=== PATIENT | male | born 1945 | race Caucasian/White ===

== ENCOUNTER → 2018-01-19 | Outpatient (CLI) | payer MEDICARE, OTHER | LOC: M.LAB 01:48 | DX: Z01.812 Encounter for preprocedural laboratory examination (principal); Z79.899 Other long term (current) drug therapy ==

== ENCOUNTER → 2019-01-18 | Outpatient (CLI) | payer MEDICARE, OTHER | LOC: M.RAD 10:26 | DX: R13.19 Other dysphagia (principal); I10 Essential (primary) hypertension; D75.1 Secondary polycythemia ==

== ENCOUNTER → 2019-02-07 | Outpatient (CLI) | payer MEDICARE, OTHER | LOC: M.LAB 01:06 | DX: E87.6 Hypokalemia (principal) ==

== ENCOUNTER → 2019-04-18 | Outpatient (CLI) | payer MEDICARE, OTHER | LOC: M.MRI 08:07 | DX: S43.401A Unspecified sprain of right shoulder joint, initial encounter (principal); M75.101 Unspecified rotator cuff tear or rupture of right shoulder, not specified as traumatic; M19.011 Primary osteoarthritis, right shoulder; X58.XXXA Exposure to other specified factors, initial encounter; Y93.89 Activity, other specified; Y92.89 Other specified places as the place of occurrence of the external cause; Y99.8 Other external cause status ==

== ENCOUNTER → 2019-05-09 | Outpatient (CLI) | payer MEDICARE, OTHER | LOC: M.LAB 05-06 17:23 | DX: E87.6 Hypokalemia (principal) ==

== ENCOUNTER → 2019-07-14 | Outpatient (CLI) | payer MEDICARE, OTHER ==
[~2019-07-14] MED LIST: COZAAR 25 MG TA25 M1 PO; FOLIC ACID1 MG PO; HYDROCHLOROTH12.5 M1 PO; IBUPROFEN 200200 M1 PO; OMEPRAZOLE40 MG PO; ROXICODONE5 M2 PO; STELARA45 MG/0.1 SUBQ; VITAMIN B-12500 MCG PO
== END ==
LOC: M.CT 13:08
DX: M12.01 Chronic postrheumatic arthropathy [Jaccoud], shoulder (principal)

== ENCOUNTER 2019-08-04 06:25 | Observation (INO) | payer MEDICARE, OTHER ==
[2019-07-21 09:20] LABS: APTT 30.1 Seconds (25.0-31.3); PROTIME 10.4 Seconds (9.20-11.50)
[2019-07-21 09:33] LABS: ABSOLUTE LYMPHOCYTES 1.1 thou/uL (0.8-5.3); ABSOLUTE MONOCYTES 0.5 thou/uL (0.0-1.2); EOSINOPHILS 1.2 %; HEMATOCRIT 50.7 % (42.0-52.0); LYMPHOCYTES 29.5 %; MCH 33.8 pg (26.0-34.0); MCHC 35.4 g/dL (28.0-37.0); MCV 95.4 fL (80.0-100.0); MONOCYTES 13.5 %; MPV 8.3 fl. (7.2-11.1); NUCLEATED RBCS 0 /100WBC; PLATELET COUNT* 206 thou/uL (150-400); POLYS 54.8 %; RBC 5.32 mil/uL (4.50-6.00); RDW-CV 13.9 % (10.5-14.5); WBC 3.6 thou/uL (4.0-11.0)
[2019-07-21 09:35] LABS: ALBUMIN 3.6 g/dL (3.4-5.0); CALCIUM 9.3 mg/dL (8.5-10.1); POTASSIUM 3.1 mmol/L (3.5-5.1); TOTAL BILIRUBIN 0.7 mg/dL (<0.1-1.0); TOTAL PROTEIN 7.2 g/dL (6.4-8.2)
[2019-07-21 10:32] LABS: ESR (SEDRATE) 0 mm/hr (0-20)
--- NOTE | 2019-07-21 17:21 | EKG ---
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 07/21/19 1720 0911 0 Luis Antonio Taylor MD, FACC /EPI
[~2019-08-04] VITALS: Ht 180.3 cm; Wt 95.3 kg
[~2019-08-04 06:25] MED LIST changes: -ROXICODONE5 M2 PO
[2019-08-04 13:00] VITALS: BP 134/73
[2019-08-04 19:58] VITALS: BP 131/85
[2019-08-05] VITALS: BP 117/76
[2019-08-05 03:32] LABS: HEMATOCRIT 48.5 % (42.0-52.0); HEMOGLOBIN 16.8 gm/dL (14.0-18.0); MCH 33.5 pg (26.0-34.0); MCHC 34.5 g/dL (28.0-37.0); MPV 8.3 fl. (7.2-11.1); RBC 5.01 mil/uL (4.50-6.00); RDW-CV 13.3 % (10.5-14.5); WBC 9.7 thou/uL (4.0-11.0)
[2019-08-05 03:48] LABS: ALBUMIN 3.2 g/dL (3.4-5.0); CALCIUM 9.3 mg/dL (8.5-10.1); POTASSIUM 3.9 mmol/L (3.5-5.1); TOTAL BILIRUBIN 1.1 mg/dL (<0.1-1.0); TOTAL PROTEIN 6.7 g/dL (6.4-8.2)
[2019-08-05 04:00] VITALS: BP 120/66
[2019-08-05 09:38] VITALS: BP 143/78
[2019-08-05 10:41] VITALS: BP 143/78
[2019-08-05] MEDS ORDERED: ROXICODONE5 M2 PO (10:53)
--- NOTE | 2019-08-26 12:21 | OP ---
[address] [address] OPERATIVE REPORT Name: ALDAIR MENDEZ Room: [address] Alejandro Gloria#: [id number] Admission: 08/04/19 Attend Phys: Fredo Harris Discharge: 08/05/19 Date of : 41 Report #: [id number] THIS REPORT FOR: //name// CC: Darrel Valentine DICTATED BY: Benton Bonilla DO DATE OF SERVICE: 08/04/2019 PREOPERATIVE DIAGNOSIS: Right shoulder rotator cuff tear arthropathy. POSTOPERATIVE DIAGNOSIS: Right shoulder rotator cuff tear arthropathy. PROCEDURE PERFORMED: Right reverse total shoulder arthroplasty. SURGEON: Liam Escoto DO QUALITY SYSTEMS TECHNICIAN: Benton Bonilla DO ANESTHESIA: General and interscalene block. ESTIMATED BLOOD LOSS: 200 mL. SPECIMENS REMOVED: None. DRAINS: None. IMPLANTS: None. ANTIBIOTICS: 2 grams Ancef IV piggyback preop. IMPLANTS: Tornier reverse total shoulder system with a 29 mm baseplate with 30 mm screw, a 36 mm standard glenosphere, a 5B long stem with a +6 mm baseplate and then a 1.5 mm offset, 6 mm poly insert. INDICATIONS FOR PROCEDURE: The patient is a very pleasant man who has been following this for quite some time with right shoulder rotator cuff arthropathy. He continued to have worsening of his symptoms with conservative treatment was no longer effective in preventing his symptoms. He is becoming more sedentary and difficulty with ADLs and is requesting surgical intervention. Risks, benefits, complications, alternatives were discussed with him. He voiced understanding and wished to proceed with surgery. DESCRIPTION OF PROCEDURE: The patient was seen in the holding area. [address] [address] OPERATIVE REPORT Name: ANDREAALDAIR HANG Room: [address] Alejandro Gloria#: [id number] Admission: 08/04/19 Attend Phys: Fredo Harris Discharge: 08/05/19 Date of : 41 Report #: [id number] operative site was marked. Verbal consent was obtained. He was transferred to the operative suite and placed supine on the table, given benefit of general anesthesia by anesthesia team. He was then properly secured to the T-max table and placed in the beach chair position. Right upper extremity was then appropriately prepped and draped in normal sterile fashion. Timeout was performed and all those in attendance agreement with correct site and procedure to be performed. A 10 blade scalpel was used to incise the skin and a standard deltopectoral approach. Blunt dissection was taken down after electrocautery was used to maintain hemostasis. We then localized the cephalic vein and this was freed up and taken laterally with the deltoid. Brown retractor was placed and a LINQ retractor was placed medially. We undermined the conjoined tendon for a LINQ retractor and then slowly dissected down to the biceps screw. Electrocautery was used to gain access to the biceps groove and then Elaine scissors were used to continue this up to the glenoid and the insertion of the long biceps tendon. Tenotomy of the long head biceps tendon was then performed and electrocautery was used to peel the subscap tendon away from the humerus. Once we had adequate exposure and a dislocation of the humerus our canal finder was used following the proximal humerus cutting guide with 30 degrees of external rotation. We then used an oscillating saw to perform resection of the proximal humerus and excess bone osteophytes were removed with a rongeur and electrocautery. We then appropriately sized our stems up to a 5B stem. This was left in place and then the humerus was then posteriorly with posterior glenoid retractor was placed followed by our anterior glenoid retractor. We then excised the labrum and remaining part of the long head biceps tendon from the glenoid in order to fully expose this area. Once this was performed, a cruciate was marked on the glenoid and appropriate starting pin was placed utilizing the preoperative CT scan plane. The pin was then placed to appropriate depth and measured as a 30 mm depth. This was further drilled and reamed to the appropriate size. The final baseplate was passed. Excess osteophytes were removed from the inferior aspect of the glenoid and the baseplate was screwed in place and found to have excellent fixation. We then placed two screws through the baseplate to the appropriate depth and then these were secured in a locking fashion. We then malleted into place and secured our 36-mm standard glenosphere with excellent coverage of the glenoid. A thorough irrigation was then used for the shoulder joint. We once again turned our attention to the proximal humerus. The appropriate baseplate +6 mm sized with the offset for good coverage of the proximal humerus was placed and then our trial poly was inserted and the shoulder was reduced and found to have good range of motion with no instability and excellent tension on the conjoint tendon. We then dislocated the shoulder, removed our trial implants were a proximal humerus our final implants were assembled on the back table with the appropriate markings placed based on our trial fixation. Once this was performed, the final implant was malleted into place, was found to have good fixation and the final reduction was performed. Once this was done, the trocar was taken through range of motion, [place] [address] OPERATIVE REPORT Name: ALDAIR MENDEZ Room: [address] Faizan#: [id number] Admission: 08/04/19 Attend Phys: Fredo Harris Discharge: 08/05/19 Date of : 41 Report #: [id number] stable in all planes and with excellent tension on the conjoined tendon. Shoulder was once again thoroughly irrigated with sterile saline. Hemostasis was maintained throughout with electrocautery. The deltopectoral fascia was then reapproximated loosely utilizing a 0 Vicryl in a [id number] fashion. Skin was then closed using 2-0 Vicryl in an inverted subcuticular fashion followed by running 3-0 Stratafix and Exofin skin glue. Sterile Mepilex dressing was placed. The patient was awoken from anesthesia and transferred to PACU in stable condition. All instrument counts were correct at the end of the case x 2. I attest Dr. Escoto was present through all critical decision making aspects of the case. <ELECTRONICALLY SIGNED> By: Liam Escoto DO 08/26/19 1221 1643 [email or web address] Escoto DO /nt
== END 2019-08-05 12:05 | disposition home or self-care (01) ==
LOC: M.SUR → M.ORTHSURG 06:25 → M.TBA 06:25 → M.SUR 06:39 → M.PRE 09:20 → EDSTATUS 12:20 → M.PRE 12:22 → M.ORTHSURG 13:02 → M.SUR 13:09 → M.ORTHSURG 08-05 12:05
PROVIDERS: Internal Medicine; Orthopaedic Surgery; ADMIT Internal Medicine
DX: M75.101 Unspecified rotator cuff tear or rupture of right shoulder, not specified as traumatic (principal); M19.011 Primary osteoarthritis, right shoulder; I10 Essential (primary) hypertension; L40.9 Psoriasis, unspecified; K21.9 Gastro-esophageal reflux disease without esophagitis; E87.6 Hypokalemia; Z79.899 Other long term (current) drug therapy

== ENCOUNTER 2019-12-26 08:08 | Inpatient (IN) | payer MEDICARE, OTHER ==
[~2019-12-26] VITALS: Ht 180.3 cm; Wt 93.4 kg
--- NOTE | ~2019-12-26 | PROC ---
[facility] [address] [place] [address] PROCEDURE REPORT Name: ALDAIR MENDEZ Room: [address] IN M.R.#: [id number] Admission: 12/26/19 Attend Phys: Fredo Harris Discharge: 01/03/20 Date of : 41 Report #: [id number] THIS REPORT FOR: //name// cc: Darrel Vasquez MD, David L. MD ~ THIS REPORT FOR: //name// For GI report, please see the Provation report in Perceptive 7 content. By: 0645Medical Records Staff JOSE /DAVID
[~2019-12-26 08:08] MED LIST changes: +ROXICODONE5 M2 PO
[2019-12-26 08:14] VITALS: BP 105/81
[2019-12-26 08:50] LABS: ABSOLUTE LYMPHOCYTES 0.5 thou/uL (0.8-5.3); ABSOLUTE MONOCYTES 0.9 thou/uL (0.0-1.2); BASOPHILS 0.3 %; EOSINOPHILS 0.1 %; HEMATOCRIT 58.6 % (42.0-52.0); HEMOGLOBIN 20.9 gm/dL (14.0-18.0); LYMPHOCYTES 5.4 %; MCH 33.1 pg (26.0-34.0); MCHC 35.6 g/dL (28.0-37.0); MCV 92.9 fL (80.0-100.0); MONOCYTES 10.7 %; MPV 8.6 fl. (7.2-11.1); NUCLEATED RBCS 0 /100WBC; PLATELET COUNT* 258 thou/uL (150-400); POLYS 83.5 %; RBC 6.31 mil/uL (4.50-6.00); RDW-CV 14.3 % (10.5-14.5); WBC 8.4 thou/uL (4.0-11.0)
[2019-12-26 09:39] LABS: ALBUMIN 4.4 g/dL (3.4-5.0); CALCIUM 9.7 mg/dL (8.5-10.1); CREATININE 2.5 mg/dL (0.6-1.3); POTASSIUM 3.1 mmol/L (3.5-5.1); TOTAL BILIRUBIN 2.4 mg/dL (<0.1-1.0); TOTAL PROTEIN 8.7 g/dL (6.4-8.2)
[2019-12-26 13:17] VITALS: BP 127/75
[2019-12-26 13:42] VITALS: BP 137/75
[2019-12-26 16:00] VITALS: BP 128/64
--- NOTE | 2019-12-26 16:18 | NUR ---
PATIENT ADMITTED TO ROOM 314. ALERT AND ORIENTED X 4. NO COMPLAINTS OF PAIN. PATIENT HAVING LOSE STOOLS, PER DR. WAGNER NO ORDERS FOR CDIFF SAMPLE TO BE SENT. REG DIET ORDERED. IVF INFUSING. UP AD ESTELLE. AT BEDSIDE. REFUSED SCD'S. ORIENTED TO CALL LIGHT. CALL LIGHT WITHIN REACH, WILL CONTINUE TO MONITOR.
--- NOTE | 2019-12-26 16:30 | EKG ---
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: MS : 1945 Requested By: Christian Issa Order Number: [id number] MD: Luis Antonio Taylor Measurements Intervals [place] Rate: 95 P: 32 WV: 170 QRS: -61 QRSD: 102 T: 79 QT: 378 QTc: 475 Interpretive Statements Sinus rhythm Left anterior fascicular block Abnormal R-wave progression, late transition Borderline prolonged QT interval Compared to ECG 07/21/2019 09:11:51 Left anterior fascicular block now present Left-axis deviation no longer present Electronically Signed On 12-26-2019 16:28:58 CDT by Luis Antonio Taylor [email or web address] <ELECTRONICALLY SIGNED> By: Luis Antonio Taylor MD, [facility] 12/26/19 1628 0847 Luis Antonio Taylor MD, [facility] /EPI
[2019-12-26 21:00] VITALS: BP 125/75
[2019-12-27 05:14] LABS: ABSOLUTE LYMPHOCYTES 0.4 thou/uL (0.8-5.3); ABSOLUTE MONOCYTES 0.9 thou/uL (0.0-1.2); ABSOLUTE NEUTROPHILS 3.7 thou/uL (1.6-8.1); BASOPHILS 0.1 %; EOSINOPHILS 0.1 %; HEMATOCRIT 51.1 % (42.0-52.0); LYMPHOCYTES 8.6 %; MCH 33.2 pg (26.0-34.0); MCHC 35.2 g/dL (28.0-37.0); MCV 94.1 fL (80.0-100.0); MONOCYTES 18.3 %; MPV 8.7 fl. (7.2-11.1); NUCLEATED RBCS 0 /100WBC; POLYS 72.9 %; RBC 5.43 mil/uL (4.50-6.00); RDW-CV 14.3 % (10.5-14.5); WBC 5.1 thou/uL (4.0-11.0)
[2019-12-27 05:24] LABS: CALCIUM 8.1 mg/dL (8.5-10.1); MAGNESIUM 1.4 mg/dL (1.8-2.4); POTASSIUM 3.2 mmol/L (3.5-5.1)
[2019-12-27 05:25] LABS: PLATELET COUNT* 177 thou/uL (150-400)
[2019-12-27 05:26] LABS: CREATININE 1.3 mg/dL (0.6-1.3)
[2019-12-27 07:55] VITALS: BP 120/68
[2019-12-27 15:00] LABS: MAGNESIUM 2.3 mg/dL (1.8-2.4); POTASSIUM 3.5 mmol/L (3.5-5.1)
--- NOTE | 2019-12-27 16:58 | NUR ---
Pt lives at home with . Pt has a cane covered through Medicare last year. No known history of HH or SNF. SW to continue to follow to assist with safe dc planning.
--- NOTE | 2019-12-27 17:29 | NUR ---
Remains stable. VSS. IVFs infusing without difficulty. Up adlib. Continues to c/o frequent diarrhea. Denies pain. NPO after MN for KUB in am. GI cx. No s/sx of acute distress. Nsg will continue to assess.
[2019-12-27 17:31] VITALS: BP 136/76
--- NOTE | 2019-12-27 19:20 | NUR ---
DR. WAGNER NOTIFIED OF CONT DIARRHEA AND LOSE OF APPETITE. ORDERS FOR TOMORROWS KUB TO BE DONE TODAY AND GI CONS. KUB RESULTS NEGATIVE AND DR. WAGNER NOTIFIED. ORDERS FOR ABD US, DR. WAGNER WAS NOTIFIED THAT US TO BE DONE IN AM FOR 8 HR NPO STATUS.
[2019-12-27 20:15] VITALS: BP 143/77
[2019-12-28 00:01] LABS: URINE BILIRUBIN NEGATIVE (Negative); URINE BLOOD TRACE (Negative); URINE CLARITY CLEAR; URINE COLOR YELLOW; URINE GLUCOSE-RANDOM NEGATIVE (Negative); URINE KETONES NEGATIVE (Negative); URINE LEUKOCYTES-REFLEX NEGATIVE (Negative); URINE NITRITE-REFLEX NEGATIVE (Negative); URINE PROTEIN TRACE (Negative); URINE SPECIFIC GRAVITY 1.025 (1.005-1.030); URINE UROBILINOGEN 0.2 E.U./dl (0.2-1.0)
[2019-12-28 05:28] LABS: HEMATOCRIT 48.8 % (42.0-52.0); MCH 32.8 pg (26.0-34.0); MCHC 34.8 g/dL (28.0-37.0); MCV 94.3 fL (80.0-100.0); MPV 8.1 fl. (7.2-11.1); NUCLEATED RBCS 0 /100WBC; PLATELET COUNT* 182 thou/uL (150-400); RBC 5.17 mil/uL (4.50-6.00); RDW-CV 14.1 % (10.5-14.5)
[2019-12-28 05:39] LABS: ALBUMIN 3.3 g/dL (3.4-5.0); CALCIUM 8.1 mg/dL (8.5-10.1); CREATININE 1.1 mg/dL (0.6-1.3); POTASSIUM 3.3 mmol/L (3.5-5.1); TOTAL BILIRUBIN 0.9 mg/dL (<0.1-1.0); TOTAL PROTEIN 6.8 g/dL (6.4-8.2)
--- NOTE | 2019-12-28 05:45 | NUR ---
PT HAS DENIED PAIN THIS SHIFT, UP AD ESTELLE TO BATHROOM FOR 6 LOOSE DK GREEN STOOLS THIS SHIFT. HAS BEEN NPO SINCE MIDNIGHT FOR ABD US TODAY. CDIFF RESULT NEGATIVE, ISOLATION REMOVED. RAC IVF INFUSING PER PUMP, ABX GIVEN ORDERED. GI TO SEE. ABLE TO USE CALL LITE AND MAKE NEEDS KNOWN.
[2019-12-28 06:55] LABS: ABSOLUTE LYMPHOCYTES 0.6 thou/uL (0.8-5.3); ABSOLUTE MONOCYTES 0.6 thou/uL (0.0-1.2); ABSOLUTE NEUTROPHILS 2.8 thou/uL (1.6-8.1); PLATELET ESTIMATE ADEQUATE
[2019-12-28 07:40] VITALS: BP 127/70
[2019-12-28 15:30] VITALS: BP 125/69
--- NOTE | 2019-12-28 17:28 | CON ---
[address] [address] CONSULTATION Name: ALDAIR MENDEZ Room: [address] IN M.R.#: [id number] Admission: 12/26/19 Attend Phys: Fredo Harris Discharge: Date of : 41 Report #: [id number] THIS REPORT FOR: //name// cc: Darrel Vasquez MD, David L. MD ~ THIS REPORT FOR: //name// CC: Darrel Valentine DICTATED BY: Trish Petersen [facility] DATE OF SERVICE: 12/28/2019 PRIMARY CARE PHYSICIAN: Darrel Vasquez MD Please note at the time of this dictation, the patient was seen and physically examined by myself. REASON FOR CONSULTATION: Nausea, vomiting, diarrhea, and dehydration. HISTORY OF PRESENT ILLNESS: This is a 74-year-old male who presented to the Emergency Room. On Thursday, he started having some diarrhea that was very mild. He did not notice any bright red blood or black stools at that time. He then progressed into having nausea and vomiting that was somewhat projectile. Again, he denied any bright red blood or any coffee ground emesis that was noted with that as well. He continued to be unable to keep anything down and his symptoms continued to worsen, prompting him to be brought into the Emergency Room on Thursday morning because he was just totally dehydrated. He said his muscles were just cramping because of that. The patient was last seen by us in 04/2019. He underwent an EGD and colonoscopy at that time that showed a small hiatal hernia, otherwise negative. Colon showed left-sided diverticulum. He had a polyp that was tubular adenoma and external hemorrhoids that were noted at that time. The patient states that his bowels prior to Thursday, he would move anywhere from once to 3 times a day, which is soft and formed with no evidence of any bright red blood or black stools that were noted until they begin to loosen up and then later on Thursday afternoon. ALLERGIES: No known drug allergies. MEDICATIONS FROM HOME: Include Roxicodone, Advil, omeprazole, Stelara, vitamin B12, folic acid, hydrochlorothiazide, and losartan. PAST MEDICAL HISTORY: GERD, hypertension[place] [address] CONSULTATION Name: ALDAIR MENDEZ Room: [address]#: [id number] Admission: 12/26/19 Attend Phys: Fredo Harris Discharge: Date of : 41 Report #: [id number] PAST SURGICAL HISTORY: Cataracts, left eye surgery, tonsillectomy, appendectomy, and left knee arthroscopic surgery. REVIEW OF SYSTEMS: A 12-point review of systems is essentially negative except what is mentioned in the HPI. FAMILY HISTORY: Negative. SOCIAL HISTORY: Negative. PHYSICAL EXAMINATION: VITAL SIGNS: Temperature 36.6, pulse 73, respirations 18, and blood pressure 127/78. HEART: Regular rate and rhythm. LUNGS: Clear. ABDOMEN: Soft. Positive bowel sounds in all 4 quadrants with no masses or tenderness noted. LABORATORY DATA: Hemoglobin is 17, white count is 4, and platelets 182. Potassium is 3.3, GFR is 65, total bilirubin 0.9, alkaline phosphatase 61, ALT 39, and AST is 46. CT showed questionable mild ileus with some diverticular disease and cholelithiasis. Abdominal x-ray that was done on 12/27/2019 is essentially negative. An ultrasound done this morning showed fatty liver with layering gallstones. His C. diff was negative as well. IMPRESSION: 1. Diarrhea. 2. Nausea and vomiting which is improving. 3. Nonsteroidal anti-inflammatory drug use, can be up to 5 a day. 4. Fatty liver disease. 5. History of rectal cancer. PLAN: 1. Stool for GI pathogens. 2. Continue his IV fluids. 3. Continue his Levaquin and Flagyl. 4. Further recommendations to be made once the above has been noted. Thank you for allowing us to participate in this patient's care. Please do not hesitate to call with any questions in regard to this consult. <ELECTRONICALLY SIGNED> By: Tere Rivas MD 12/28/19 1728 1103 [id number] Rivas MD /nt
--- NOTE | 2019-12-28 17:31 | NUR ---
PATIENT HAD A FAIR DAY. STATES STOOLS ARE SLOWING DOWN. LIANA FROM GI SAW PATIENT THIS MORNING AND ORDERS FOR STOOL SAMPLE RECEIVED AND SENT. FAIR APPETITE. IVF AND SCHED ABX REMAIN INFUSING. POTASSIUM BEING REPLACED.
[2019-12-28 21:00] VITALS: BP 122/66
[2019-12-29 04:09] LABS: ABSOLUTE LYMPHOCYTES 0.5 thou/uL (0.8-5.3); ABSOLUTE MONOCYTES 0.8 thou/uL (0.0-1.2); ABSOLUTE NEUTROPHILS 1.8 thou/uL (1.6-8.1); BASOPHILS 0.5 %; EOSINOPHILS 0.2 %; HEMATOCRIT 46.4 % (42.0-52.0); HEMOGLOBIN 16.3 gm/dL (14.0-18.0); LYMPHOCYTES 17.1 %; MCH 33.2 pg (26.0-34.0); MCHC 35.2 g/dL (28.0-37.0); MCV 94.4 fL (80.0-100.0); MONOCYTES 23.7 %; MPV 8.3 fl. (7.2-11.1); NUCLEATED RBCS 0 /100WBC; PLATELET COUNT* 170 thou/uL (150-400); POLYS 58.5 %; RBC 4.91 mil/uL (4.50-6.00); RDW-CV 14.1 % (10.5-14.5); WBC 3.2 thou/uL (4.0-11.0)
[2019-12-29 04:48] LABS: ALBUMIN 3.1 g/dL (3.4-5.0); POTASSIUM 3.3 mmol/L (3.5-5.1)
--- NOTE | 2019-12-29 05:55 | NUR ---
PATIENT SLEPT MOST OF THE NIGHT. IV FLUIDS CONTINUE TO INFUSE ORDERED. PATIENT HAD NO COMPLAINTS OF PAIN. WILL CONTINUE TO MONITOR.
[2019-12-29 08:00] VITALS: BP 118/70
[2019-12-29 15:43] VITALS: BP 126/55
--- NOTE | 2019-12-29 19:26 | NUR ---
PATIENT AWAKE IN BED. PATIENT AMBULATED IN HALLWAY THIS AFTERNOON. PATIENT EXPERIENCED GREEN WATERY EMESIS AFTER DINNER. DR. VALVERDE NOTIFIED. NEW ORDERS RECEIVED. ALL SAFETY MEASURES MAINTAINED. PATIENT DENIES FURTHER NEEDS AT THIS TIME.
[2019-12-29 20:30] VITALS: BP 134/69
--- NOTE | 2019-12-30 05:43 | NUR ---
PATIENT SLEPT MOST OF THE NIGHT. IV FLUIDS AND ANTIBIOTICS WERE GIVEN ORDERED. PATIENT STATES FREQUENCY OF STOOLS HAVE SLOWED DOWN SOME. WILL CONTINUE TO MONITOR.
[2019-12-30 08:00] VITALS: BP 128/75
[2019-12-30 16:00] VITALS: BP 126/61
[2019-12-30 19:50] VITALS: BP 121/62
--- NOTE | 2019-12-30 20:04 | NUR ---
PATIENT AWAKE IN BED. PATIENT AMBULATED IN ROOM AND HALLWAY THIS SHIFT. ALL SAFETY MEASURES MAINTAINED. PATIENT DENIES FURTHER NEEDS AT THIS TIME.
--- NOTE | 2019-12-31 05:19 | NUR ---
PT ALERT AND ORIENTED. VSS ON RA. ASSESSMENT DOCUMENTED. MEDS GIVEN PER EMAR. PT DENIED PAIN THIS SHIFT. [facility] PT AMBULATED [address]. UP AD ESTELLE. PT REPORTS HAVING A BM THAT WS NOT DIARRHEA. WILL CONTINUE TO MONITOR.
[2019-12-31 05:34] LABS: HEMATOCRIT 43.9 % (42.0-52.0); HEMOGLOBIN 15.5 gm/dL (14.0-18.0); MCH 32.8 pg (26.0-34.0); MCHC 35.2 g/dL (28.0-37.0); MCV 93.1 fL (80.0-100.0); RBC 4.71 mil/uL (4.50-6.00); RDW-CV 13.7 % (10.5-14.5); WBC 3.1 thou/uL (4.0-11.0)
[2019-12-31 05:46] LABS: ALBUMIN 2.6 g/dL (3.4-5.0); CALCIUM 7.6 mg/dL (8.5-10.1); CREATININE 1.1 mg/dL (0.6-1.3); MAGNESIUM 1.4 mg/dL (1.8-2.4); POTASSIUM 3.5 mmol/L (3.5-5.1); TOTAL BILIRUBIN 0.6 mg/dL (<0.1-1.0); TOTAL PROTEIN 5.5 g/dL (6.4-8.2)
[2019-12-31 08:00] VITALS: BP 113/71
[2019-12-31 16:02] VITALS: BP 112/56
--- NOTE | 2019-12-31 16:33 | NUR ---
PATIENT NOTED OT HAVE RASH ON BACK THIS AM, DR. PEDRO NOTIFIED AND ORDERS FOR HYDROCORTISONE CREAM. PLACED THIS AFTERNOON AND PHOTO TAKE OF RASH PER PROTOCOL. IV RESTARTED TO RIGH AC, IV THIS AM NOTED TO HAVE PHLEBITIS. IVF AND SCHED ABX REMAIN INFUSING. MG 1.4, REPLACED IV PER PROTOCOL. UP AD ESTELLE. GI SAW PATIENT THIS AFTERNOON, PROBABLE COLONOSCOPY ON THURSDAY.
[2019-12-31 19:50] VITALS: BP 166/67
--- NOTE | 2020-01-01 06:46 | NUR ---
PT ALERT AND ORIENTED. VSS ON RA. PT SLEPT WELL THIS SHIFT. MEDS GIVEN PER EMAR. PT TO START ON CLEAR LIQUID DIET TODAY. PT AWARE. PT UP AD ESTELLE. NO BM NOTED. CALL LIGHT WITHIN REACH. HOURLY ROUNDINGS MADE. WILL CONTINUE TO MONITOR.
[2020-01-01 07:50] VITALS: BP 137/76
--- NOTE | 2020-01-01 14:09 | NUR ---
PATIENT ON CLEAR LIQUID DIET. UP AND SHOWERED THIS AM. HYDROCORTISONE TO RASH ON BACK AFTER SHOWER. IVF AND SCHED ABX INFUSING ORDERED. MG BEING REPLACED PO FOR LEVEL OF 1.7 PER PROTOCOL. PATIENT STARTED ON BOWEL PREP THIS AFTERNOON FOR COLONOSCOPY TOMORROW BY DR. LANDIS. PATIENT TO BE NPO AFTER MIDNIGHT.
--- NOTE | 2020-01-01 15:30 | NUR ---
ASSUMED CARE OF PATIENT AT THIS TIME. PATIENT ON BOWEL PREP. BEDSIDE COMMODE PROVIDED. PATIENT DENIES ANY FURTHER NEEDS. CALL LIGHT WITHIN REACH.
[2020-01-01 18:15] VITALS: BP 164/68
[2020-01-01 19:40] VITALS: BP 139/78
[2020-01-02 04:37] LABS: ABSOLUTE LYMPHOCYTES 1.2 thou/uL (0.8-5.3); ABSOLUTE MONOCYTES 0.6 thou/uL (0.0-1.2); ABSOLUTE NEUTROPHILS 1.9 thou/uL (1.6-8.1); BASOPHILS 1.1 %; EOSINOPHILS 1.3 %; HEMATOCRIT 44.4 % (42.0-52.0); LYMPHOCYTES 30.7 %; MCH 32.8 pg (26.0-34.0); MONOCYTES 16.3 %; MPV 8.2 fl. (7.2-11.1); NUCLEATED RBCS 0 /100WBC; PLATELET COUNT* 167 thou/uL (150-400); POLYS 50.6 %; RBC 4.87 mil/uL (4.50-6.00); RDW-CV 13.7 % (10.5-14.5); WBC 3.8 thou/uL (4.0-11.0)
[2020-01-02 04:47] LABS: APTT 30.4 Seconds (25.0-31.3); INR 1.2; PROTIME 12.1 Seconds (9.20-11.50)
[2020-01-02 05:03] LABS: ALBUMIN 2.8 g/dL (3.4-5.0); CALCIUM 7.5 mg/dL (8.5-10.1); CREATININE 0.8 mg/dL (0.6-1.3); MAGNESIUM 2.7 mg/dL (1.8-2.4); TOTAL PROTEIN 5.9 g/dL (6.4-8.2)
--- NOTE | 2020-01-02 05:10 | NUR ---
PT ALERT AND ORIENTED. VSS ON RA. MEDS GIVEN PER EMAR. BOWEL PREP. NPO AFTER MN. COLONOSCOPY TODAY. CONSENTS DONE. CALL LIGHT WITHIN REACH. HOURLY ROUNDINGS MADE. WILL CONTINUE TO MONITOR.
[2020-01-02 05:24] LABS: POTASSIUM 2.6 mmol/L (3.5-5.1)
[2020-01-02 06:31] VITALS: BP 139/78
[2020-01-02 07:30] VITALS: BP 124/68
--- NOTE | 2020-01-02 14:10 | NUR ---
1345 REMAINS A&O. RESPIRATIONS EVEN AND UNLABORED ON ROOM AIR. DENIES PAIN. IVFS AND K+ INFUSING IN LAC WITHOUT DIFFICULTIES. VSS. HYDROCORTISONE TO RASH AREAS PER MD ORDER. TOLERATING REGULAR DIET. CALL TURNER WITHIN REACH. NSG WILL CONTINUE TO ASSESS.
--- NOTE | 2020-01-02 15:48 | NUR ---
CM SPOKE TO THE PATIENT AND HIS SPOUSE TO DISCUSS DISCHARGE PLANNING NEEDS, AND PLAN TO D/C TOMORROW PER DR PEDRO. PATIENT AND SPOUSE INFORM THAT THEY DO NOT ANTIIPATE ANY DISCHARGE PLANNING NEEDS. CM WILL REMAIN AVAILABLE TO ASSIST AND FOLLOW NEEDED.
[2020-01-02 16:00] VITALS: BP 139/75
[2020-01-02 20:30] VITALS: BP 138/69
--- NOTE | 2020-01-03 06:20 | NUR ---
PATIENT SLEPT MOST OF THE NIGHT. IV REMAINS SALINE LOCKED. PATIENT HAD NO COMPLAINTS OF PAIN. PATIENT SHOULD DISCHARGE HOME TODAY. WILL CONTINUE TO MONITOR.
[2020-01-03 08:41] VITALS: BP 138/71
[2020-01-03 10:56] VITALS: BP 138/71
[2020-01-03 11:54] VITALS: BP 138/71
--- NOTE | 2020-01-04 14:07 | PATH ---
[address] [address] PATHOLOGY RPT PROCEDURE Name: VAUGHN MENDEZ Room: [address] IN M.R.#: [id number] Admission: 12/26/19 Date of : 41 Discharge: 01/03/20 Report #: [id number] Path Case #: [id number] LCA Accession Number: [id number] . 01 Material submitted: . colon - RANDOM COLON BIOPSIES FOR CHRONIC DIARRHEA . 01 Clinical history: . Chronic diarrhea . 02 Diagnosis: Random colon biopsies: - Hyperplastic lymphoid follicles (Peyer's patches) and focal fresh hemorrhage in otherwise normal colonic mucosa. (SEFERINO:pit 01/04/2020) QTP 01/04/2020 1205 Local . 02 Electronically signed: . Vaughn Chin MD, Pathologist NPI- [id number] . 01 Gross description: . The specimen is received in formalin, labeled "Wilfred, Vaughn, random colon biopsies" and consists of multiple fragments of nguyen tissue measuring 1.5 x 0.8 x 0.3 cm in aggregate which are entirely submitted in A1. (SDY; 01/03/2020) SYU/SYU 01/03/2020 1511 Local . 02 Pathologist provided ICD-10: R19.7 . 02 CPT . 116297 Specimen Comment: A courtesy copy of this report has been sent to [phone] Specimen Comment: [phone], Specimen Comment: Report sent to ,DR WAGNER / DR BARTH Performed at: [address] [facility] [address], [place] [id number] MD Jose Frias MD Phone: [phone] Performed at: [address] [facility] [address] [address], [place], [place] [id number] MD Vaughn Chin MD Phone: [phone]
== END 2020-01-03 13:03 | disposition home or self-care (01) | DRG 389 ==
LOC: M.ERS 08:08 → M.3W 11:38 → M.TBA-ER 11:38 → M.3W 13:28
PROVIDERS: Emergency Medicine Emergency Medical Services; Internal Medicine; ADMIT Internal Medicine
PROC: 0DBE8ZX Excision of Large Intestine, Via Natural or Artificial Opening Endoscopic, Diagnostic (ICD-10-PCS; principal; 2020-01-02)
DX: K56.7 Ileus, unspecified (principal); N17.9 Acute kidney failure, unspecified; E44.0 Moderate protein-calorie malnutrition; D12.0 Benign neoplasm of cecum; K21.9 Gastro-esophageal reflux disease without esophagitis; I10 Essential (primary) hypertension; K76.0 Fatty (change of) liver, not elsewhere classified; E87.6 Hypokalemia; E86.0 Dehydration; N20.0 Calculus of kidney; E83.42 Hypomagnesemia; M43.17 Spondylolisthesis, lumbosacral region; M19.011 Primary osteoarthritis, right shoulder; K57.30 Diverticulosis of large intestine without perforation or abscess without bleeding; K52.9 Noninfective gastroenteritis and colitis, unspecified; K64.4 Residual hemorrhoidal skin tags; Z90.49 Acquired absence of other specified parts of digestive tract; Z79.899 Other long term (current) drug therapy; Z79.51 Long term (current) use of inhaled steroids; Z85.048 Personal history of other malignant neoplasm of rectum, rectosigmoid junction, and anus; Z79.1 Long term (current) use of non-steroidal anti-inflammatories (NSAID); Z87.891 Personal history of nicotine dependence; Z68.28 Body mass index [BMI] 28.0-28.9, adult; Z98.41 Cataract extraction status, right eye; Z98.42 Cataract extraction status, left eye

== ENCOUNTER → 2021-03-07 | Outpatient (CLI) | payer MEDICARE, OTHER | LOC: M.LAB 05:21 | PROVIDERS: ATTEND Internal Medicine Gastroenterology | DX: E87.6 Hypokalemia (principal) ==

== ENCOUNTER 2021-07-12 13:06 | Inpatient (IN) | payer MEDICARE, OTHER ==
[~2021-07-12] VITALS: Ht 180.3 cm; Wt 87.5 kg
--- NOTE | ~2021-07-12 | PROC ---
[address] [address] PROCEDURE REPORT Name: ALDAIR MENDEZ Room: [address] IN M.R.#: [id number] Admission: 07/12/21 Attend Phys: Trent Joshi MD Discharge: 07/15/21 Date of : 41 Report #: [id number] THIS REPORT FOR: cc: Angélica Alexander Tammy RNP [facility],Medical Records Staff ~ For GI report, please see the Provation report in Perceptive 7 content. By: D: 1422Medical Records Staff [facility] /DAVID
[2021-07-12 13:24] VITALS: BP 97/61
[2021-07-12] MEDS ORDERED: APAP W/CODEINE1 TA2 PO (13:30)
[2021-07-12 14:23] LABS: HEMATOCRIT 39.5 % (42.0-52.0); HEMOGLOBIN 13.8 gm/dL (14.0-18.0); MCH 32.5 pg (26.0-34.0); MCHC 35.1 g/dL (28.0-37.0); MCV 92.8 fL (80.0-100.0); MPV 6.9 fl. (7.2-11.1); NUCLEATED RBCS 0 /100WBC; PLATELET COUNT* 356 thou/uL (150-400); RBC 4.25 mil/uL (4.50-6.00); RDW-CV 13.5 % (10.5-14.5); WBC 14.1 thou/uL (4.0-11.0)
[2021-07-12 14:28] LABS: CALCIUM 9.3 mg/dL (8.5-10.1); CREATININE 1.5 mg/dL (0.6-1.3); POTASSIUM 3.6 mmol/L (3.5-5.1)
[2021-07-12 14:33] LABS: ALBUMIN 3.1 g/dL (3.4-5.0); TOTAL BILIRUBIN 4.5 mg/dL (<0.1-1.0); TOTAL PROTEIN 7.4 g/dL (6.4-8.2)
[2021-07-12 14:43] LABS: URINE BLOOD NEGATIVE (Negative); URINE COLOR YELLOW; URINE GLUCOSE-RANDOM TRACE (Negative); URINE KETONES NEGATIVE (Negative); URINE LEUKOCYTES NEGATIVE (Negative); URINE NITRITE POSITIVE (Negative); URINE PROTEIN TRACE (Negative); URINE SPECIFIC GRAVITY 1.025 (1.005-1.030)
[2021-07-12 14:44] LABS: ICTOTEST (BILI CONFIRMATORY) Positive (Negative); URINE BILIRUBIN 2+ (Negative); URINE CLARITY HAZY
[2021-07-12 14:55] LABS: ABSOLUTE LYMPHOCYTES 0.6 thou/uL (0.8-5.3); ABSOLUTE NEUTROPHILS 13.5 thou/uL (1.6-8.1); PLATELET ESTIMATE ADEQUATE
[2021-07-12 14:57] LABS: BACTERIA 1-9 Few /HPF (None Seen); CASTS None Seen /LPF (None Seen); CRYSTALS None Seen /LPF (None Seen); SQUAMOUS 0-3 Few /LPF (0-3); URINE RBC 0-2 Rare /HPF (0-2); URINE WBC 0-5 Rare /HPF (0-5)
[2021-07-12 17:25] VITALS: BP 137/92
--- NOTE | 2021-07-12 19:49 | NUR ---
Assumed care at 1753. Pt came up to the unit at 1753. Pt is alert and oirented. Pt was made comfortable, placed on telemetry, fluid initiated. Pt denied any pain. Pt is NPO. Will continue to provide care to patient.
[2021-07-12 19:50] VITALS: BP 120/69
[2021-07-13] VITALS: BP 146/59
[2021-07-13 04:00] VITALS: BP 118/64
--- NOTE | 2021-07-13 05:31 | NUR ---
PT SLEPT OFF AND ON OVERNIGHT. UP AD ESTELLE TO BATHROOM, REPORTS LOOSE BM.LAC IVF INFUSING PER PUMP, ABX GIVEN ORDERED. NPO. TELE SR. ABD OLD INCISION SITES SCABBED, BRUISING. ABD DISTENDED,HAS DENIED NEED FOR PAIN MEDS OVERNIGHT. AOX4, ABLE TO USE CALL LITE AND MAKE NEEDS KNOWN. GI AND SURGERY TO CONSULT, SPOKE WITH DR GOODE THIS MORNING REGARDING EARLIER LABS AND CT/US RESULTS.
--- NOTE | 2021-07-13 06:38 | NUR ---
PT REPORTS FLAT RED ITCHING RASH TO ANDRAE ARMS AND BACK, STATES HE HAS HAD THIS IN THE PAST AND IT HAS BEEN CAUSED BY HOSPITAL LAUNDRY SOAPS. DR KINGSLEY NOTIFIED AND ORDERS RECEIVED FOR ONETIME BENADRYL IV DOSE.
[2021-07-13 07:50] LABS: CALCIUM 8.9 mg/dL (8.5-10.1); CREATININE 1.1 mg/dL (0.6-1.3); POTASSIUM 3.3 mmol/L (3.5-5.1)
[2021-07-13 08:10] LABS: ABSOLUTE LYMPHOCYTES 0.4 thou/uL (0.8-5.3); ABSOLUTE MONOCYTES 0.6 thou/uL (0.0-1.2); ABSOLUTE NEUTROPHILS 10.8 thou/uL (1.6-8.1); BASOPHILS 0.3 %; EOSINOPHILS 0.2 %; HEMATOCRIT 36.7 % (42.0-52.0); HEMOGLOBIN 12.6 gm/dL (14.0-18.0); LYMPHOCYTES 3.7 %; MCH 32.4 pg (26.0-34.0); MCHC 34.4 g/dL (28.0-37.0); MCV 94.1 fL (80.0-100.0); MPV 7.4 fl. (7.2-11.1); NUCLEATED RBCS 0 /100WBC; PLATELET COUNT* 343 thou/uL (150-400); POLYS 90.8 %; RDW-CV 13.6 % (10.5-14.5); WBC 11.9 thou/uL (4.0-11.0)
[2021-07-13 08:34] LABS: SGOT 164 U/L (15-37); SGPT 199 U/L (30-65)
[2021-07-13 09:55] LABS: ALBUMIN 2.5 g/dL (3.4-5.0); TOTAL BILIRUBIN 5.8 mg/dL (<0.1-1.0); TOTAL PROTEIN 6.5 g/dL (6.4-8.2)
--- NOTE | 2021-07-13 11:53 | EKG ---
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 07/13/21 1153 1054 1054 Raul Cruz MD, [facility] /EPI
--- NOTE | 2021-07-13 14:31 | NUR ---
Assumed care at 0800. Pt is alert and oriented. Assessment done and charted. Pt complaining about abdominal discomfort 11/28. Fluid infusing. Pt is schedule to have ERCP done today. at the bedside. Will continue to provide care for patient.
[2021-07-13 20:00] VITALS: BP 106/66
[2021-07-14 01:46] VITALS: BP 107/65
[2021-07-14 04:00] LABS: ALBUMIN 2.1 g/dL (3.4-5.0); TOTAL BILIRUBIN 2.6 mg/dL (<0.1-1.0); TOTAL PROTEIN 5.7 g/dL (6.4-8.2)
[2021-07-14 04:05] LABS: HEMATOCRIT 35.1 % (42.0-52.0); MCH 32.3 pg (26.0-34.0); MCHC 34.1 g/dL (28.0-37.0); MCV 94.7 fL (80.0-100.0); MPV 7.7 fl. (7.2-11.1); RBC 3.71 mil/uL (4.50-6.00); RDW-CV 13.6 % (10.5-14.5); WBC 6.6 thou/uL (4.0-11.0)
[2021-07-14 05:10] VITALS: BP 116/65
--- NOTE | 2021-07-14 05:37 | NUR ---
PT SLEPT ON AND OFF OVERNIGHT. NO COMPLAINTS OF PAIN OR PROBLEMS. HOPEFUL FOR DISCHARGE HOME TODAY. LAC IVF INFUSING PER PUMP, ABX GIVEN ORDERED. RECEIVED PO BENEDRYL X1 FOR CO ITCHING ON BACK AND ARMS. AM LABS DRAWN. NO N/V AFTER REGULAR DIET. UP AD ESTELLE WITH STEADY GAIT.
[2021-07-14 08:30] VITALS: BP 122/62
[2021-07-14 12:00] VITALS: BP 122/63
--- NOTE | 2021-07-14 15:21 | NUR ---
ASSESS ABDOMEN THIS AM. PATIENT HAS HAD RECENT SURGERY. HAS 3 INSERT SITES LEFT SIDE OF ABD AND 1 POST SURGICAL SITE MID LOWER ABDOMEN. ALL SITES HEALED. NO BLEEDING. PATIENT DENIES PAIN TO ABDOMEN.
[2021-07-14 16:00] VITALS: BP 118/65
[2021-07-14 20:30] VITALS: BP 114/57
[2021-07-15] VITALS (7 sets, daily range): BP systolic 124–131; BP diastolic 62–81
--- NOTE | 2021-07-15 07:13 | NUR ---
Alert and oriented x 4. Sinus rhthym on the monitor,vitals stable and on roomair. Lapsites x 3 to abdomen and small midline incision above umbilicus, approximated with dermabond and open to air. He has a distended abdomen, bowel sounds x 4 and is passing gas, last BM 07/12. He's up independently in the room. He is slightly upset about being awakened so frequently.
[2021-07-15 08:06] LABS: ALBUMIN 2.4 g/dL (3.4-5.0); DIRECT BILIRUBIN 0.8 mg/dL (<0.1-0.3); TOTAL BILIRUBIN 1.2 mg/dL (<0.1-1.0); TOTAL PROTEIN 5.4 g/dL (6.4-8.2)
--- NOTE | 2021-07-15 14:00 | NUR ---
Pt is A&O. Resides at home with . Independent. Pt has a cane that he can use PRN. No hx of HH or SNF. Goal is home at dc. ID following for final abx recs. Surg signed off. Anticipate dc later today or tomorrow.
[2021-07-15] MEDS ORDERED: CIPRO500 M1 PO (15:16)
[2021-07-15] MEDS ORDERED: FLAGYL500 M1 PO (15:16)
--- NOTE | 2021-07-17 15:41 | CON ---
[address] [address] CONSULTATION Name: ALDAIR MENDEZ Room: [address] IN M.R.#: [id number] Admission: 07/12/21 Attend Phys: Trent Joshi MD Discharge: 07/15/21 Date of : 41 Report #: [id number] THIS REPORT FOR: cc: Angélica Alexander Tammy RNP Namin, Farid M. MD ~ DATE OF CONSULTATION: 07/13/2021 REASON FOR CONSULTATION: Abdominal pain and elevated liver enzymes. HISTORY OF PRESENT ILLNESS: This is a 76-year-old male who started having epigastric pain yesterday. The pain was bearing, which prompted him to come to the hospital. Upon ER visit, the patient found to have elevated liver enzymes. There was also evidence of bile duct dilatation with suspicion of choledocholithiasis. Since admission, the patient has been hydrated and is on IV antibiotic. He reports that his pain is somewhat better and denies any nausea or vomiting. He had some nausea yesterday, but did not vomit. PAST MEDICAL AND SURGICAL HISTORY: Significant for history of hypertension, gastroesophageal reflux disease, bilateral cataract surgery, colon cancer 15 years ago with resection, right shoulder surgery, appendectomy and tonsillectomy. ALLERGIES: No known drug allergy. MEDICATIONS: Please refer to MAR. SOCIAL HISTORY: The patient admits to drinking a glass of martini daily, but denies ever smoking. FAMILY HISTORY: Noncontributory. PHYSICAL EXAMINATION: VITAL SIGNS: Reveals blood pressure of 118/64, respirations 16, pulse 83 and temperature 98.1. LUNGS: Clear. CARDIOVASCULAR: Regular. ABDOMEN: Soft, tender to palpation in the right upper quadrant. Bowel sounds are positive. NEUROLOGIC: The patient is alert and oriented x 3. There is no focal neurologic deficit. LABORATORY DATA: Reveal sodium of 136, potassium 3.3, BUN is 13, [place] [address] CONSULTATION Name: ALDAIR MENDEZ Room: [address]#: [id number] Admission: 07/12/21 Attend Phys: Trent Joshi MD Discharge: 07/15/21 Date of : 41 Report #: [id number] 1.1, AST is 162 down from 386. Lipase is 72, total bilirubin is 5.8, up from 4.5, alkaline phosphatase is 384, down from 497 and ALT is 191, down from 281. WBC is 11.9, hemoglobin 12.6 with platelets of 343. IMAGING: As discussed above. ASSESSMENT AND PLAN: The patient with choledocholithiasis and elevated liver enzymes and bilirubin. We will proceed with ERCP with sphincterotomy and stone extraction from the common bile duct. The patient will need a gallbladder surgery when his gallbladder cools off. We will make further recommendation based on finding. <ELECTRONICALLY SIGNED> By: Tere Rivas MD 07/17/21 1541 1122 [id number] Rivas MD /nt
== END 2021-07-15 16:20 | disposition home or self-care (01) | DRG 871 ==
LOC: M.ERS 13:06 → M.2W 15:55 → M.TBA-ER 15:55 → M.2W 18:18
PROVIDERS: Emergency Medicine; Internal Medicine Gastroenterology; Nurse Practitioner Adult Health; Student in an Organized Health Care Education/Training Program; ADMIT Internal Medicine; ATTEND Internal Medicine
PROC: 0F798ZZ Dilation of Common Bile Duct, Via Natural or Artificial Opening Endoscopic (ICD-10-PCS; principal; 2021-07-13)
DX: A41.51 Sepsis due to Escherichia coli [E. coli] (principal); N17.0 Acute kidney failure with tubular necrosis; K80.00 Calculus of gallbladder with acute cholecystitis without obstruction; R65.20 Severe sepsis without septic shock; Z96.611 Presence of right artificial shoulder joint; Z20.822 Contact with and (suspected) exposure to COVID-19; I10 Essential (primary) hypertension; K21.9 Gastro-esophageal reflux disease without esophagitis; Z98.42 Cataract extraction status, left eye; Z98.41 Cataract extraction status, right eye; Z85.038 Personal history of other malignant neoplasm of large intestine; Z90.49 Acquired absence of other specified parts of digestive tract; Z87.891 Personal history of nicotine dependence; Z79.899 Other long term (current) drug therapy

== ENCOUNTER 2021-08-22 08:34 | Observation (INO) | payer MEDICARE, OTHER ==
[~2021-08-22] VITALS: Ht 180.3 cm; Wt 83.5 kg
--- NOTE | ~2021-08-22 | H ---
[address] [address] HISTORY AND PHYSICAL Name: ALDAIR MENDEZ Room: [address] Alejandro Gloria#: [id number] Admission: 08/22/21 Attend Phys: Christie Scanlon DO Discharge: 08/23/21 Date of : 41 Report #: [id number] THIS REPORT FOR: cc: Angélica Alexander Tammy RNP [facility],Medical Records Staff ~ Please refer to the History and Physical performed in the physician's office. By: [id number] Records Staff JOSE /DAVID
--- NOTE | ~2021-08-22 | PROC ---
[facility] [address] [place] [address] PROCEDURE REPORT Name: ALDAIR MENDEZ Room: [address] Alejandro Gloria#: [id number] Admission: 08/22/21 Attend Phys: Christie Scanlon DO Discharge: 08/23/21 Date of : 41 Report #: [id number] THIS REPORT FOR: cc: Angélica Alexander Tammy RNP [facility],Medical Records Staff ~ For GI report, please see the Provation report in Perceptive 7 content. By: 0842Medical Records Staff JOSE /DAVID
[~2021-08-22 08:34] MED LIST changes: +APAP W/CODEINE1 TA2 PO; +CIPRO500 M1 PO; +FLAGYL500 M1 PO
[2021-08-22 09:02] LABS: HEMATOCRIT 45.1 % (42.0-52.0); HEMOGLOBIN 15.3 gm/dL (14.0-18.0); MCH 31.2 pg (26.0-34.0); MCV 91.9 fL (80.0-100.0); MPV 8.2 fl. (7.2-11.1); RBC 4.91 mil/uL (4.50-6.00); WBC 4.8 thou/uL (4.0-11.0)
[2021-08-22 09:07] LABS: CALCIUM 9.4 mg/dL (8.5-10.1); CREATININE 1.2 mg/dL (0.6-1.3); POTASSIUM 3.2 mmol/L (3.5-5.1)
--- NOTE | 2021-08-22 09:46 | EKG ---
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: [facility] : 1945 Requested By: Shanti Mcrae Order Number: [id number] Riri MD: Klever Lara Measurements Intervals [place] Rate: 63 P: 18 NH: 186 QRS: -28 QRSD: 101 T: 28 QT: 461 QTc: 472 Interpretive Statements Sinus rhythm Borderline left axis deviation Minor IVCD Inferior scar cannot be excluded Compared to ECG 07/13/2021 10:54:28 Evidence for prior inferior scar less prominent Electronically Signed On 08-22-2021 9:46:41 CDT by Klever Lara [email or web address] <ELECTRONICALLY SIGNED> By: Klever Lara MD, [facility] 08/22/2146 3 3 Klever Lara MD, FAC /EPI
--- NOTE | 2021-08-22 15:02 | OP ---
[address] [address] OPERATIVE REPORT Name: ALDAIR MENDEZ Room: [address] Alejandro Gloria#: [id number] Admission: 08/22/21 Attend Phys: Christie Scanlon DO Discharge: Date of : 41 Report #: [id number] THIS REPORT FOR: cc: Angélica Alexander Tammy RNP Brock, Christie M. DO ~ DATE OF SURGERY: 08/22/2021 PREOPERATIVE DIAGNOSIS: Acute cholecystitis with cholelithiasis with recent choledocholithiasis, status post ERCP approximately a month ago. POSTOPERATIVE DIAGNOSIS: Acute cholecystitis with cholelithiasis with recent choledocholithiasis, status post ERCP approximately a month ago. FINDINGS: Acutely distended gallbladder with multiple stones on IOC, which lasted 24 seconds. The common bile duct was dilated as was the pancreatic duct. Contrast did flow into the duodenum, but there were two obvious large stones in the distal CBD. SURGEON: Christie Scanlon DO CO-SURGEON: Luke Murrieta, PGY1 QUALITY IMPROVEMENT ANALYST: BRENDA Toro PROCEDURE PERFORMED: Laparoscopic cholecystectomy with IOC with surgeon interpretation of images. ANESTHESIA: General endotracheal, local and TAP blocks. ESTIMATED BLOOD LOSS: 5 mL. SPECIMENS: Gallbladder. COMPLICATIONS: None. CONDITION: Stable. DISPOSITION: PACU to the floor. HISTORY OF PRESENT ILLNESS: The patient is a pleasant 76-year-old gentleman who has had an unfortunate course of events over the last eight weeks. He went into the hospital for a right hemicolectomy with Dr. Landeros. Unfortunately, in the postoperative period, he then acutely developed acute cholecystitis with cholelithiasis and was found to have common bile duct stones. He underwent an ERCP with extraction of stones and was then [place] [address] OPERATIVE REPORT Name: ALDAIR MENDEZ Room: [address] Alejandro Gloria#: [id number] Admission: 08/22/21 Attend Phys: Christie Scanlon DO Discharge: Date of : 41 Report #: [id number] preference of the colorectal surgeon that cholecystectomy not be performed for at least 6 weeks after the right hemicolectomy, so the patient was closely followed in the office. Once the 6 weeks had passed, he was then booked and consented for laparoscopic cholecystectomy with intraoperative cholangiogram. Risks and benefits were discussed in detail. The patient agreed to proceed. DESCRIPTION OF PROCEDURE: The patient was brought to the operating room. He was laid supine on the operating room table. SCDs were placed on bilateral lower extremities. Ancef was given in the perioperative period. General endotracheal anesthesia was induced by anesthesia without difficulty. TAP blocks were then also provided by Anesthesia without issue. Abdomen was prepped and draped in standard sterile fashion. Timeout was performed to verify patient and procedure. A 10 mL of 0.5% Marcaine were injected in the infraumbilical area. Incision was made with 11 blade. Cautery was used for hemostasis. S retractors were used to visualize fascia. Fascia was grasped and elevated between 2 Kochers. Fascia was incised using cautery. Peritoneum was bluntly entered using a Radha clamp. Finger was introduced into the abdomen to assure that there were no madiha-incisional adhesions, none were identified. Two stitches of 0 Vicryl were placed on the fascia. Jaswinder trocar was introduced and secured with 0 Vicryl stitches. Abdomen was insufflated. The patient was placed head up and tilted left side down. Camera was introduced and a brief anterior abdominal exploration was undertaken with findings of dense adhesions in the right upper quadrant from his recent surgery. There were also some adhesions noted in the right lower quadrant. Gallbladder was very distended and was in Morison's pouch. A 5 mm trocar was introduced in the subxiphoid area. Laparoscopic cautery was then introduced and the adhesions in the right upper quadrant were taken down. Two additional 5 mm trocars were then introduced in the right upper quadrant without difficulty. The gallbladder was grasped and elevated. Peritoneum overlying the triangle of Calot, was incised using cautery. Duct and artery were circumferentially dissected free using a [place] dissector. Any tissues posterior to the artery were removed to the liver plate. This afforded the critical view. Dinero clamp was then introduced into the abdomen and the neck of the gallbladder was grasped and the cholangiogram catheter was introduced. The patient was returned to the supine position and C-arm was brought onto the field. Intraoperative cholangiogram was then performed through the cystic duct with findings of a dilated common bile duct as well as a dilated pancreatic duct. Contrast did promptly flow into the duodenum. We had two obvious large stones in the distal CBD. Hepatic radicals were visualized and appeared to be normal. Just to verify that what we were seeing were not air bubbles, a cholangiogram was repeated with the same findings. Cholangiogram time was 24 seconds. Catheter and Dinero clamp were then removed and the patient was returned to the upright and left side down position. Duct and artery were then both doubly clipped and ligated. Gallbladder was removed from the liver bed utilizing cautery with no further difficulty. Specimen was placed within an EndoCatch bag. Right upper quadrant was copiously [address] [place] [address] OPERATIVE REPORT Name: ALDAIR MENDEZ Room: [address] Faizan#: [id number] Admission: 08/22/21 Attend Phys: Christie Scanlon DO Discharge: Date of : 41 Report #: [id number] irrigated until clear. Liver bed was inspected, it was hemostatic. Clips were inspected. They appeared to be intact. There was no bleeding or leakage noted from the area of the clips. The patient was returned to the supine position. Any fluid in Morison's pouch was removed. Trocars were removed under direct visualization. There was no bleeding noted from the peritoneum. Abdomen was then completely desufflated. Jaswinder trocar was removed and EndoCatch bag was removed with specimen intact. Stones were palpated, they were handed off for permanent pathology. Kochers were placed on the fascia of our infraumbilical port. Previously placed 0 Vicryl stitches were removed and a 0 Vicryl stitch was placed in [id number]-mr-[id number] fashion with excellent approximation of the fascia. An additional 10 mL of 0.5% Marcaine were injected in the fascia. All wounds were closed with 4-0 Monocryl. A total of 30 mL of 0.5% Marcaine were used to anesthetize the wounds. Wounds were then cleansed and covered with Dermabond. The patient was then allowed to awaken from anesthesia, was extubated and transported to the recovery room with no further difficulties. Counts were correct at the conclusion of the case. <ELECTRONICALLY SIGNED> By: Christie Scanlon DO 08/22/21 1502 1036 [id number] Azra Scanlon DO /nt
[2021-08-22 20:30] VITALS: BP 136/82
[2021-08-22 20:34] LABS: ALBUMIN 3.7 g/dL (3.4-5.0); DIRECT BILIRUBIN 0.4 mg/dL (<0.1-0.3); TOTAL BILIRUBIN 1.1 mg/dL (<0.1-1.0); TOTAL PROTEIN 8.1 g/dL (6.4-8.2)
[2021-08-23 03:43] VITALS: BP 105/55
[2021-08-23 06:57] LABS: ABSOLUTE LYMPHOCYTES 0.8 thou/uL (0.8-5.3); ABSOLUTE MONOCYTES 0.5 thou/uL (0.0-1.2); ABSOLUTE NEUTROPHILS 4.8 thou/uL (1.6-8.1); BASOPHILS 0.2 %; EOSINOPHILS 0.1 %; HEMATOCRIT 39.3 % (42.0-52.0); HEMOGLOBIN 13.4 gm/dL (14.0-18.0); LYMPHOCYTES 12.6 %; MCH 31.4 pg (26.0-34.0); MCHC 34.1 g/dL (28.0-37.0); MCV 92.1 fL (80.0-100.0); MONOCYTES 8.6 %; MPV 8.5 fl. (7.2-11.1); NUCLEATED RBCS 0 /100WBC; PLATELET COUNT* 225 thou/uL (150-400); POLYS 78.5 %; RBC 4.27 mil/uL (4.50-6.00); RDW-CV 13.7 % (10.5-14.5); WBC 6.1 thou/uL (4.0-11.0)
[2021-08-23 07:18] LABS: ALBUMIN 2.9 g/dL (3.4-5.0); CALCIUM 9.1 mg/dL (8.5-10.1); CREATININE 1.1 mg/dL (0.6-1.3); MAGNESIUM 1.7 mg/dL (1.8-2.4); PHOSPHORUS* 3.8 mg/dL (2.5-4.9); POTASSIUM 3.6 mmol/L (3.5-5.1); TOTAL BILIRUBIN 0.9 mg/dL (<0.1-1.0); TOTAL PROTEIN 6.7 g/dL (6.4-8.2)
[2021-08-23] MEDS ORDERED: OXYCODONE HCL 55 MG PO (12:40)
--- NOTE | 2021-08-26 16:49 | CON ---
[address] [address] CONSULTATION Name: ALDAIR MENDEZ Room: [address] Alejandro Gloria#: [id number] Admission: 08/22/21 Attend Phys: Christie Scanlon DO Discharge: 08/23/21 Date of : 41 Report #: [id number] THIS REPORT FOR: cc: Angélica Alexander Tammy RNP Namin, Farid M. MD ~ DATE OF CONSULTATION: 08/22/2021 REASON FOR CONSULTATION: Choledocholithiasis. HISTORY OF PRESENT ILLNESS: This is a 76-year-old male who is known to me as he had history of cholangitis and choledocholithiasis. The patient underwent ERCP with sphincterotomy and stone extraction back in 08/14. The patient reports that he was completely asymptomatic and underwent his surgery today. Intraoperative cholangiogram revealed 2 stones in the distal common bile duct. His liver function tests all within normal limits with mild elevation of alkaline phosphatase. His bilirubin also is normal. The patient currently denies any nausea, vomiting, abdominal pain, dyspepsia or dysphagia. PAST MEDICAL HISTORY: Significant for; 1. History of cholangitis and choledocholithiasis, status post ERCP with sphincterotomy. 2. Osteoarthritis. 3. Ileus. 4. Sepsis. 5. Renal failure. 6. Gastroesophageal reflux disease. 7. Hypertension. 8. B12 deficiency. ALLERGIES: No known drug allergy. MEDICATIONS: Please refer to MAR. SOCIAL HISTORY: The patient lives at home. Denies tobacco or alcohol use. He may have an occasional Martini. FAMILY HISTORY: Noncontributory. PHYSICAL EXAMINATION: VITAL SIGNS: Reveals blood pressure of 124/81, respiration is 16, pulse 120, temperature is 98.3. LUNGS: [place] [address] CONSULTATION Name: ALDAIR MENDEZ Room: [address] Alejandro Gloria#: [id number] Admission: 08/22/21 Attend Phys: Christie Scanlon DO Discharge: 08/23/21 Date of : 41 Report #: [id number] CARDIOVASCULAR: Regular. ABDOMEN: Soft, mildly tender to palpation in the surgical site. Bowel sounds are hypoactive, but present. NEUROLOGIC: The patient is alert and oriented x 3. There are no focal neurologic deficits. LABORATORY DATA: Revealed sodium of 142, potassium 3.2, BUN is 9, creatinine 1.2, glucose 118, AST 35, ALT 90, alkaline phosphatase 209, total bilirubin is 1.2. INR is 1.2. WBC is 4.8 with hemoglobin of 15.3 and platelets of 254. IMAGING: As discussed above. ASSESSMENT AND PLAN: The patient with laparoscopic cholecystectomy, who had intraoperative cholangiogram, which was significant for biliary ductal dilatation with couple of filling defect in the distal common bile duct. I will advance patient's diet as tolerated as he has no pain, nausea or vomiting. We will make him n.p.o. and perform an ERCP tomorrow. The patient is agreeable with the plan. <ELECTRONICALLY SIGNED> By: Tere Rivas MD 08/26/21 1649 1454 Tere Rivas MD /nt
--- NOTE | 2021-08-26 18:06 | PATH ---
[address] [address] PATHOLOGY RPT PROCEDURE Name: VAUGHN MENDEZ Room: [address] Alejandro Gloria#: [id number] Admission: 08/22/21 Date of : 41 Discharge: 08/23/21 Report #: [id number] Path Case #: [id number] [facility] Accession Number: [id number] . 01 Material submitted: . gallbladder - GALLBLADDER . 01 Clinical history: . LAPAROSCOPIC CHOLECYSTECTOMY WITH GRAMS ACUTE CHOLECYSTITIS DUE TO BILIARY CALCULUS . 02 Diagnosis: Gallbladder: - Chronic and acute cholecystitis and cholelithiasis with attached benign liver tissue. (SEFERINO:lake; 08/26/2021) MBR 08/26/2021 1129 Local . 02 Electronically signed: . Vaughn Chin MD, Pathologist NPI- [id number] . 01 Gross description: . Fixative: Formalin Labeled: Gallbladder Specimen received: Intact gallbladder Dimensions: 8.7 x 3.8 x 3.8 cm Serosa: Blue-caro with a slight amount of attached possible liver tissue measuring 1.3 x 0.8 x 0.5 cm Lymph node: Not identified Mucosa: Velvety, bile-stained Average wall thickness: 0.1 cm Calculi: Several black, spiculated calculi are identified Abnormalities: None identified . Dance Teacher body, fundus, and the cystic duct margin in cassette A1. The possible liver tissue is bisected and submitted in cassette A2. (CAA; 08/23/2021) QA/QA 08/23/2021 0941 Local . 02 Pathologist provided ICD-10: K80.12 . 02 CPT . 348308 Specimen Comment: A courtesy copy of this report has been sent to [phone], [phone] Specimen Comment: [address] [place] [address] PATHOLOGY RPT PROCEDURE Name: VAUGHN MENDEZ Room: [address] M..#: [id number] Admission: 08/22/21 Date of : 41 Discharge: 08/23/21 Report #: [id number] Path Case #: [id number] Specimen Comment: Report sent to AND DR CAGE Performed at: 01 [facility] Asha Dupree [address] [place] [address] [address], [place] [id number] MD Wei Gutiérrez MD Phone: [phone] Performed at: 02 [facility] [address], [place], [place] [id number] MD Vaughn Chin MD Phone: [phone]
== END 2021-08-23 20:30 | disposition home or self-care (01) ==
LOC: M.SUR 08:34 → M.TBA-CV 11:27 → M.3W 20:07
PROVIDERS: Internal Medicine Gastroenterology; ADMIT Surgery; ATTEND Surgery
DX: K80.00 Calculus of gallbladder with acute cholecystitis without obstruction (principal); Z20.822 Contact with and (suspected) exposure to COVID-19; K80.50 Calculus of bile duct without cholangitis or cholecystitis without obstruction; M19.90 Unspecified osteoarthritis, unspecified site; K21.9 Gastro-esophageal reflux disease without esophagitis; I10 Essential (primary) hypertension; Z79.899 Other long term (current) drug therapy